=== PATIENT | female | born 1945 | race Caucasian/White ===

== ENCOUNTER 2020-04-19 10:48 | Observation (INO) ==
[2020-04-19] MEDS ORDERED: ASPIRIN 325 MG TABLET PO STA (11:13)
[2020-04-19] MEDS ORDERED: NITROGLYCERIN 2% OINT 1 INCH/GM PACK TOP STA (11:13)
[2020-04-19] MEDS ORDERED: ENOXAPARIN 100 MG/ML SYRINGE SUBCUT STA (11:13)
[2020-04-19 11:33] LABS: Basophils # 0.1 10*3/uL (0.0-0.2); Basophils % 1.1 % (0.0-0.8); Eosinophils # 0.2 10*3/uL (0.0-0.87); Eosinophils % 2.8 % (0.00-10.9); Hematocrit 43.9 VOL% (35.7-47.0); Hemoglobin 14.3 GM/DL (12.0-16.0); Immature Granulocytes % 0.4 %; Immature Granulocytes Absolute 0.02 #; Lymphocytes # 1.1 10*3/uL (1.4-4.0); Lymphocytes % 21.6 % (21.3-54.2); Mean Corpuscular HGB Conc 32.6 GM/DL (32-36); Mean Corpuscular Volume 96.7 FL (87-102); Mean Platelet Volume 10.4 FL (9.6-12.0); Monocytes % 7.4 % (1.7-12.7); Neutrophils % 66.7 % (38.7-73.9); Platelet Count 219 T/CUMM (130-400); Red Blood Count 4.54 MC/CUMM (3.8-5.5); White Blood Count 5.3 T/CUMM (4-12)
[2020-04-19 11:45] LABS: Partial Thromboplastin Time 25.5 SECS (23.9-33.8)
[2020-04-19 12:48] LABS: Albumin 3.5 G/DL (3.4-5.0); Bilirubin,Total 0.5 MG/DL (0.2-1.0); Calcium 8.8 MG/DL (8.5-10.1); Osmolality,Calculated 282.1 MOS/KG (273-304); Total Protein 6.5 G/DL (6.4-8.3)
[2020-04-19] MEDS ORDERED: MORPHINE 4 MG/1 ML VIAL IV PRN (13:08)
[2020-04-19] MEDS ORDERED: ACETAMINOPHEN 325 MG TABLET PO PRN (13:08)
[2020-04-19] MEDS ORDERED: traZODone 50 MG TABLET PO PRN (13:08)
[2020-04-19] MEDS ORDERED: ZALEPLON 5 MG CAPSULE PO PRN (13:08)
[2020-04-19] MEDS ORDERED: ONDANSETRON 4 MG/2 ML VIAL IV PRN (13:08)
[2020-04-19] MEDS ORDERED: ENOXAPARIN 80 MG/0.8 ML SYRINGE SUBCUT SCH (13:30)
[2020-04-19 13:57] LABS: Thyroid Stimulating Hormone 4.06 uIU/ml (0.358-3.74)
[2020-04-19] MEDS ORDERED: hydrALAZINE 20 MG/1 ML VIAL IV PRN (14:10)
[2020-04-19] MEDS: PANTOPRAZOLE 40 MG TABLET PO SCH (14:19)
[2020-04-19] MEDS ORDERED: LABETALOL 20 MG/4 ML SYRINGE IV ONE (15:10)
[2020-04-19] MEDS ORDERED: ONDANSETRON 4 MG/2 ML VIAL IV STA (15:17)
[2020-04-19] MEDS ORDERED: LABETALOL 20 MG/4 ML SYRINGE IV STA (15:17)
[2020-04-19] MEDS ORDERED: MORPHINE 10 MG/1 ML VIAL IV ONE (15:17)
[2020-04-19] MEDS: lisinopriL 10 MG TABLET PO SCH ×2 (16:06→21:21)
[2020-04-19] MEDS ORDERED: ROSUVASTATIN 20 MG TABLET PO SCH (21:00)
[2020-04-20 05:45] LABS: Troponin I 0.019 NG/ML (0.00-0.045)
[2020-04-20 06:59] LABS: Risk Ratio 6.4; VLDL CHOLESTEROL 64.4 MG/DL
[2020-04-20] MEDS ORDERED: ASPIRIN 325 MG TABLET PO SCH (09:00)
[2020-04-20] MEDS: PANTOPRAZOLE 40 MG TABLET PO SCH (09:25)
[2020-04-20] MEDS: lisinopriL 10 MG TABLET PO SCH (09:25)
[2020-04-20 11:24] VITALS: BP 126/52
[2020-04-20] MEDS ORDERED: tiZANidine 4 MG TABLET PO SCH (21:00)
[2020-04-21] MEDS ORDERED: ATORVASTATIN 20 MG TABLET PO SCH (09:00)
[2020-04-21] MEDS ORDERED: CLOPIDOGREL 75 MG TABLET PO SCH (09:00)
[2020-04-21] MEDS ORDERED: LEVOTHYROXINE 25 MCG TABLET PO SCH (09:00)
[2020-04-21] MEDS ORDERED: CITALOPRAM 20 MG TABLET PO SCH (09:00)
[2020-04-21] MEDS ORDERED: FERROUS SULFATE 325 MG TABLET PO SCH (09:00)
[2020-04-21] MEDS ORDERED: ASPIRIN EC 81 MG TABLET PO SCH (09:00)
== END 2020-04-20 12:26 | disposition home or self-care (01) ==
LOC: N.ED 10:48 → N.EDINP 10:48 → N.TELEN 16:43
PROVIDERS: ADMIT Internal Medicine; ATTEND Internal Medicine